=== PATIENT | male | born 1985 | race Two or more races ===

== ENCOUNTER 2017-10-21 22:06 | Emergency (ER) | payer OTHER ==
[~2017-10-21] VITALS: Ht 195.6 cm; Wt 122.5 kg
--- NOTE | 2017-10-21 22:29 | NUR ---
CALLED [facility] FOR DUPLEX ULTRASOUND AND SHE SAID SHE WILL BE HERE WITHIN THE HOUR,
--- NOTE | 2017-10-21 22:30 | NUR ---
PT BIB [facility] IN CUSTODY WITH A C/O BLE PAIN. PT STATED THAT HE HAS NOT TAKEN HIS XERALTO IN 2.5-3 MONTHS. PT TAKES METH AND HEROIN. PT'S BLE ARE EDEMATOUS, WARM TO THE TOUCH, PITTING EDEMA NOTED AND C/O PAIN 8/10. PT HAS ONE HANDCUFF ON THE RUE AND IT IS ATTACHED TO THE BED.
[2017-10-21] MEDS ORDERED: CEPHALEXIN MONOHYDRATE 500 MG CAPSULE PO ONE ×2 (23:00→23:03)
[2017-10-21] MEDS ORDERED: HYDROCODONE/APAP 5/325MG 1 EACH TABLET PO ONE (23:00)
[2017-10-21] MEDS ORDERED: HYDROCODONE/APAP 5/325MG 1 EACH TABLET ONE (23:03)
--- NOTE | 2017-10-21 23:30 | NUR ---
Patient discharged IN CUSTODY to [facility] in stable condition. Written and verbal after care instructions given. Patient verbalizes understanding of instruction. PT AMBULATED OUT WITH A SLOW STEADY GAIT. PT IS MEDICALLY CLEARED FOR BOOKING. VSS. NAD NOTED.
[2017-10-21 23:33] VITALS: BP 120/82
== END 2017-10-21 23:34 | disposition home or self-care (01) ==
LOC: ER 22:08
DX: Z02.89 Encounter for other administrative examinations (principal); L03.115 Cellulitis of right lower limb; M79.604 Pain in right leg; Z86.718 Personal history of other venous thrombosis and embolism
CPT/HCPCS: 93971-TC; A4606; Z7610